=== PATIENT | female | born 1985 | race Caucasian/White ===

== ENCOUNTER 2024-08-11 17:39 | Inpatient (IN) | payer BC ==
[2024-08-11] MEDS ORDERED: Sodium Chloride 0.9% 10 ML Syringe FLUSH PRN (17:51)
[2024-08-11] MEDS ORDERED: Nalbuphine 10 MG/1 ML Vial IVPUSH PRN (17:51)
[2024-08-11] MEDS ORDERED: Ondansetron 4 MG/2 ML SDV IVPUSH PRN (17:51)
[2024-08-11] MEDS ORDERED: Calcium Carbonate 500 MG Tab.Chew PO PRN (17:51)
[2024-08-11] MEDS ORDERED: Lidocaine 1% 50 ML MDV INJECT PRN (17:51)
[2024-08-11 18:39] LABS: BASOPHILS PERCENT AUTO 0.4 % (0.0-1.0); EOSINOPHILS PERCENT AUTO 0.7 % (0.0-6.0); HEMATOCRIT 39.4 % (37.0-47.0); HEMOGLOBIN 13.5 gm/dl (12.0-16.0); IMMATURE GRAN ABSOLUTE AUTO 0.02 K/mm3 (0.00-0.05); IMMATURE GRAN PERCENT AUTO 0.4 % (0.0-0.4); LYMPHOCYTES ABSOLUTE AUTO 1.1 K/mm3 (1.0-4.8); LYMPHOCYTES PERCENT AUTO 18.8 % (24.0-44.0); MEAN CORPUSCULAR HGB CONC 34.3 g/dl (32.0-36.0); MEAN CORPUSCULAR VOLUME 81.6 fl (83.0-99.0); MONOCYTES ABSOLUTE AUTO 0.5 K/mm3 (0.0-0.8); MONOCYTES PERCENT AUTO 8.2 % (0.0-8.0); NEUTROPHILS PERCENT AUTO 71.5 % (41.0-71.0); PLATELET COUNT,PLT 144 K/mm3 (150-400); RED BLOOD CELL COUNT 4.83 M/mm3 (4.10-5.30); WHITE BLOOD CELL COUNT,WBC 5.59 K/mm3 (3.9-11.3)
[2024-08-11] MEDS ORDERED: Misoprostol 25 MCG (1/4 of 100 MCG) Tab VAG PRN (19:35)
[2024-08-11] MEDS: Misoprostol 25 MCG (1/4 of 100 MCG) Tab VAG ONE (19:55)
[2024-08-11 20:39] LABS: CREATININE 1.1 mg/dL (0.55-1.02); EST CRCL DRUG DOSING (CG) 81.73 mL/min; URIC ACID 6.2 mg/dL (2.6-6.0)
[2024-08-12] MEDS: Misoprostol 25 MCG (1/4 of 100 MCG) Tab VAG ONE (07:17)
[2024-08-12] MEDS: Lactated Ringers 1,000 ML IV SCH (09:37)
[2024-08-12] MEDS: Oxytocin/0.9 % Sodium Chloride 30 UNIT/500 ML BAG IV SCH (09:41)
[2024-08-12] MEDS ORDERED: diphenhydrAMINE 50 MG/ML SDV IVPUSH PRN (10:43)
[2024-08-12] MEDS ORDERED: ePHEDrine 50 MG/ML SDV IVPUSH PRN (10:43)
[2024-08-12] MEDS: Bupivacaine/fentaNYL/NS 100 ML Bag EPIDUR PRN (11:05)
[2024-08-12] MEDS: Labetalol 100 MG/20 ML MDV IVPUSH ONE (21:48)
[2024-08-13] MEDS: Oxytocin/0.9 % Sodium Chloride 30 UNIT/500 ML BAG IV SCH (01:40)
[2024-08-13] MEDS ORDERED: Acetaminophen 325 MG Tab PO PRN (01:41)
[2024-08-13] MEDS ORDERED: Docusate Sodium 100 MG Cap PO PRN (01:41)
[2024-08-13] MEDS: Ibuprofen 600 MG Tab PO SCH (02:07)
[2024-08-13] MEDS: Benzocaine/Menthol 20%-0.5% Spray 78 GM Cannister TOP PRN (02:08)
[2024-08-13] MEDS: Witch Hazel Medicated Pads 40/Jar TOP PRN (02:08)
[2024-08-14] MEDS: Labetalol 100 MG Tab PO SCH (08:33)
== END 2024-08-14 21:30 | disposition home or self-care (01) | DRG 560 ==
LOC: JD.OB 17:39 → OBSVTOIN 23:53 → JD.OB 08-12 23:53
PROVIDERS: ADMIT Obstetrics & Gynecology; ATTEND Obstetrics & Gynecology
PROC: 10E0XZZ Delivery of Products of Conception, External Approach (ICD-10-PCS; principal; 2024-08-13)
PROC: 0U7C7DJ Dilation of Cervix with Intraluminal Device, Temporary, Via Natural or Artificial Opening (ICD-10-PCS; 2024-08-13)
PROC: 3E0DXGC Introduction of Other Therapeutic Substance into Mouth and Pharynx, External Approach (ICD-10-PCS; 2024-08-13)
PROC: 10H07YZ Insertion of Other Device into Products of Conception, Via Natural or Artificial Opening (ICD-10-PCS; 2024-08-13)
PROC: 0KQM0ZZ Repair Perineum Muscle, Open Approach (ICD-10-PCS; 2024-08-13)
PROC: 3E0R3BZ Introduction of Anesthetic Agent into Spinal Canal, Percutaneous Approach (ICD-10-PCS; 2024-08-13)
PROC: 00HU33Z Insertion of Infusion Device into Spinal Canal, Percutaneous Approach (ICD-10-PCS; 2024-08-13)
PROC: 4A1HXCZ Monitoring of Products of Conception, Cardiac Rate, External Approach (ICD-10-PCS; 2024-08-13)
DX: O13.4 Gestational [pregnancy-induced] hypertension without significant proteinuria, complicating childbirth (principal); O24.424 Gestational diabetes mellitus in childbirth, insulin controlled; Z3A.37 37 weeks gestation of pregnancy; Z37.0 Single live birth; O70.1 Second degree perineal laceration during delivery
CPT/HCPCS: 36415; 51701; 51702; 59025; 59409; 82565; 82947; 83615; 84450; 84460; 84520; 84550; 85025; 86592; 86850; 86900; 86901; A9270-GY; C1726; J1920; J3490; J7120; J7999